=== PATIENT | female | born 1990 | race Caucasian/White ===

== ENCOUNTER 2020-07-17 16:09 | Emergency (ER) | payer OTHER ==
[~2020-07-17 16:09] MED LIST: AUGMENTIN 875-1 EACH PO; CEFUROXIME500 MG PO; FLONASE 0.05% N16 GM; IBUPROFEN800 MG PO; NAPROSYN500 MG PO; PYRIDIUM200 MG PO
[2020-07-17 16:51] LABS: HEMOGLOBIN 10.8 gm/dl (12.3-15.3); RED BLOOD COUNT 5.25 M/UL (4.00-5.10); WHITE BLOOD COUNT 10.1 K/UL (4.5-11.0)
[2020-07-17 17:09] LABS: BUN/CREATININE RATIO 17 (0-10)
== END 2020-07-17 18:59 | disposition home or self-care (01) ==
LOC: ER1 16:09
PROVIDERS: Emergency Medicine
DX: N93.9 Abnormal uterine and vaginal bleeding, unspecified (principal); D64.9 Anemia, unspecified; N83.201 Unspecified ovarian cyst, right side; F17.200 Nicotine dependence, unspecified, uncomplicated; Z87.42 Personal history of other diseases of the female genital tract; Z88.2 Allergy status to sulfonamides; Z88.5 Allergy status to narcotic agent
CPT/HCPCS: 76830; 80053; 84702; 85025; 85610; 85730; 99284; J7030

== ENCOUNTER 2020-09-23 14:48 | Emergency (ER) | payer OTHER | END 2020-09-23 16:50 | disposition home or self-care (01) | LOC: ER1 14:48 | DX: U07.1 COVID-19 (principal); I10 Essential (primary) hypertension; F17.290 Nicotine dependence, other tobacco product, uncomplicated; Z88.8 Allergy status to other drugs, medicaments and biological substances | CPT/HCPCS: 99283 ==

== ENCOUNTER 2020-09-30 11:24 | Emergency (ER) | payer OTHER ==
[2020-09-30 12:23] LABS: RED BLOOD COUNT 5.55 M/UL (4.00-5.10); WHITE BLOOD COUNT 3.2 K/UL (4.5-11.0)
[2020-09-30 12:48] LABS: BUN/CREATININE RATIO 21 (0-10)
== END 2020-09-30 15:50 | disposition home or self-care (01) ==
LOC: ER1 11:24
PROVIDERS: Student in an Organized Health Care Education/Training Program
DX: U07.1 COVID-19 (principal); I10 Essential (primary) hypertension; Z79.899 Other long term (current) drug therapy; Z88.8 Allergy status to other drugs, medicaments and biological substances; F17.290 Nicotine dependence, other tobacco product, uncomplicated
CPT/HCPCS: 71045; 80053; 81001; 82550; 82553; 83874; 83880; 84484; 84703; 85025; 85379; 93005; 96374; 99285; J2405; J7120

== ENCOUNTER 2020-10-03 15:45 | Emergency (ER) | payer OTHER ==
[2020-10-03 17:37] LABS: HEMOGLOBIN 10.4 gm/dl (12.3-15.3); RED BLOOD COUNT 5.27 M/UL (4.00-5.10); WHITE BLOOD COUNT 4.1 K/UL (4.5-11.0)
[2020-10-03 17:58] LABS: BUN/CREATININE RATIO 16 (0-10)
== END 2020-10-03 20:24 | disposition home or self-care (01) ==
LOC: ER1 15:45
PROVIDERS: Family Medicine
DX: K62.5 Hemorrhage of anus and rectum (principal); K59.00 Constipation, unspecified; E87.6 Hypokalemia; E66.01 Morbid (severe) obesity due to excess calories; F17.290 Nicotine dependence, other tobacco product, uncomplicated; I10 Essential (primary) hypertension; D64.9 Anemia, unspecified; Z88.8 Allergy status to other drugs, medicaments and biological substances; Z79.899 Other long term (current) drug therapy
CPT/HCPCS: 80053; 81001; 83605; 83690; 84703; 85025; 85610; 93005; 99284

== ENCOUNTER → 2021-09-13 | Outpatient (CLI) | payer BC | LOC: KOH-I 09:50 | DX: M54.42 Lumbago with sciatica, left side (principal); M54.41 Lumbago with sciatica, right side; M47.817 Spondylosis without myelopathy or radiculopathy, lumbosacral region | CPT/HCPCS: 72100 ==

== ENCOUNTER 2021-11-09 13:10 | Emergency (ER) | payer BC, OTHER ==
[2021-11-09 13:41] LABS: HEMOGLOBIN 11.8 gm/dl (12.3-15.3); RED BLOOD COUNT 5.76 M/UL (4.00-5.10); WHITE BLOOD COUNT 11.1 K/UL (4.5-11.0)
[2021-11-09 14:04] LABS: BUN/CREATININE RATIO 16 (0-10)
== END 2021-11-09 14:42 | disposition home or self-care (01) ==
LOC: ER1 13:10
PROVIDERS: Emergency Medicine
DX: R51.9 Headache, unspecified (principal); I10 Essential (primary) hypertension; F17.290 Nicotine dependence, other tobacco product, uncomplicated
CPT/HCPCS: 80053; 85025; 99281

== ENCOUNTER → 2022-02-17 | Outpatient (CLI) | payer BC | LOC: KOH-I 14:37 | DX: M79.671 Pain in right foot (principal); S92.521A Displaced fracture of middle phalanx of right lesser toe(s), initial encounter for closed fracture | CPT/HCPCS: 73630 ==